=== PATIENT | female | born 1990 | race Two or more races ===

== ENCOUNTER → 2017-10-19 15:40 | Outpatient (CLI) | payer OTHER, SELFPAY | PROVIDERS: Family Provider Family Medicine; PCP Family Medicine; Visit Provider Otolaryngology Otolaryngology/Facial Plastic Surgery | DX: J02.9 Acute pharyngitis, unspecified (principal) | CPT/HCPCS: 87070 ==

== ENCOUNTER → 2018-06-18 16:05 | Outpatient (CLI) | payer OTHER, SELFPAY ==
[2018-06-18 18:36] LABS: Internal QC Validated? YES +Cl - CLEAR BKGD; Pregnancy, Urine Negative Negative
== END ==
PROVIDERS: Family Provider Family Medicine; PCP Family Medicine; Referring Provider Dermatology; Visit Provider Dermatology
DX: L70.0 Acne vulgaris (principal); L23.3 Allergic contact dermatitis due to drugs in contact with skin; Z79.899 Other long term (current) drug therapy
CPT/HCPCS: 81025

== ENCOUNTER → 2018-07-16 10:09 | Outpatient (CLI) | payer OTHER, SELFPAY ==
[2018-07-16 12:32] LABS: Internal QC Validated? YES +Cl - CLEAR BKGD; Pregnancy, Urine Negative Negative
--- OUTSIDE RECORDS SUMMARY | 2018-10-17 17:33 | XMS RPT_ITS ---
:1990 External Reference #:[id number] Author Organization [facility] Care Team Providers Name Role Phone DONNIE GOFF, DR. TERRY Steele Attending Unavailable PETRA GOFF, DR. WILLSON Primary Care Unavailable DONNIE GOFF, DR. TERRY Steele Attending Unavailable PETRA GOFF, DR. WILLSON Primary Care Unavailable Terry Hallman Attending Unavailable Erasmo Hallmane Referring Unavailable RickPaz coker Primary Care Unavailable Surya Arellano Attending Unavailable Petra Paz Primary Care Unavailable Surya Arellano Referring Unavailable Terry Hallman Attending Unavailable Terry Hallman Referring Unavailable PetraPaz Primary Care Unavailable PROBLEMS PROBLEMS DATE TYPE CONDITION / CODE ATTENDING STATUS SOURCE 07/16/2018 Unknown Z79.899 - Other Terry Hallman Active [facility] counterman Community (current[facility] drug Hospital therapy / Repository Z79.899(ICD-10) 07/16/2018 Unknown L70.0 - Acne Terry Hallman Active [facility] vulgaris / Community L70.0(ICD-10) Hospital Repository 07/16/2018 Unknown L23.3 - Allergic Terry Hallman Active [facility] contact Community dermatitis due to Hospital drugs in contact Repository with skin / L23.3(ICD-10) PROCEDURES PROCEDURES No Procedure Records FoundRESULTS RESULTS ,URINE Collected: 07/16/2018 Status: F Source: [facility] 10:15 AM [facility] REPOSITORY TYPE CODE TESTS RESULT OUT OF REFERENCE UNITS RANGE LAB L400.8000 Negative Normal HCGUQUAL Negative Result Comment: Very dilute urine specimens, as indicated by a low specific gravity, may not contain industrial relations representative levels of hCG. If is still suspected, a first morning urine specimen should be collected 48 hours later and tested. Performed By: #### L400.7600 #### [facility] [address] [place], [place], [id number] ,URINE Collected: 06/18/2018 Status: F Source: [place] 4:10 PM [facility] REPOSITORY TYPE CODE TESTS RESULT OUT OF REFERENCE UNITS RANGE LAB L400.8000 Negative Normal HCGUQUAL Negative Result Comment: Very dilute urine specimens, as indicated by a low specific gravity, may not contain industrial relations representative levels of hCG. If is still suspected, a first morning urine specimen should be collected 48 hours later and tested. Performed By: #### L400.7600 #### [facility] [address] [place], [place], [address] PREGU Collected: 05/20/2018 Status: F Source: [facility] 12:04 PM [facility] REPOSITORY TYPE CODE TESTS RESULT OUT OF RANGE REFERENCE UNITS LAB PREGU(LOIN C) Test Negative Urine LAB PRUG1(LOIN C) Unknown test HCG not (u) int detected. Performed By: #### PREGU #### [address] [address] AST Collected: 04/16/2018 Status: F Source: [facility] 12:[address] [place] [address] REPOSITORY TYPE CODE TESTS RESULT OUT OF RANGE REFERENCE UNITS LAB AST(LOINC) 10-40 U/L AST/SGOT 17 Performed By: #### AST, ALT, LIPID, HCGQ #### [place] [address] #### LDLDCT #### [address] [address] ALT/SGPT Collected: 04/16/2018 Status: F Source: [facility] [address] [place] [address] REPOSITORY TYPE CODE TESTS RESULT OUT OF RANGE REFERENCE UNITS LAB ALT(LOINC) 10-35 U/L ALT/SGPT 26 Performed By: #### AST, ALT, LIPID, HCGQ #### [place] [address] #### LDLDCT #### [address] [address] LIPID Collected: 04/16/2018 Status: F Source: [facility] 12: [facility] REPOSITORY TYPE CODE TESTS RESULT OUT OF REFERENCE UNITS RANGE LAB CHOL(LOINC 0-200 mg/dL ) Cholesterol 123 Result Comment: Cholesterol Reference Interval: Less than 200 Desirable 200-239 Borderline high risk 240 and above High risk LAB TRIG(LOINC) 0-150 mg/dL Triglycerides 101 Result Comment: Triglyceride Reference Interval: Less than 150 Normal 150-199 Borderline high risk 200-499 High risk 500 or higher Very high risk LAB HD(LOINC) 40-60 mg/dL HDL Cholesterol 45 LAB LDL(LOINC) 0-130 mg/dL LDL Cholesterol 58 Performed By: #### AST, ALT, LIPID, HCGQ #### [place] [address] #### LDLDCT #### [address] [address] HCGQ Collected: 04/16/2018 Status: F Source: [facility] 12:[address] [place] [address] REPOSITORY TYPE CODE TESTS RESULT OUT OF REFERENCE UNITS RANGE LAB HCGQ(LOINC mIU/mL ) hCG, quantitative <1.0 Result Comment: HCG Quantitative 3 Weeks Gestation mIU/mL 5.0 to 12.0 HCG Quantitative 4 Weeks Gestation mIU/mL 10.0 to 708.0 HCG Quantitative 5 Weeks Gestation mIU/mL 217.0 to 8245.0 HCG Quantitative 6 Weeks Gestation mIU/mL 152.0 to 32,177.0 HCG Quantitative 7 Weeks Gestation mIU/mL 4059.0 to 153,767.0 HCG Quantitative 8 Weeks Gestation mIU/mL 31,366.0 to 149,094.0 HCG Quantitative 9 Weeks Gestation mIU/mL 59,109.0 to 135,901.0 HCG Quantitative 10 Weeks Gestation mIU/mL 44,186.0 to 170,409.0 HCG Quantitative 12 Weeks Gestation mIU/mL 27,107.0 to 201,615.0 HCG Quantitative 14 Weeks Gestation mIU/mL 24,302.0 to 93,646.0 Performed By: #### AST, ALT, LIPID, HCGQ #### [address] [address] #### LDLDCT #### [address] [address] DIRECT LDL Collected: 04/16/2018 Status: F Source: [facility] 12:01 [facility] REPOSITORY TYPE CODE TESTS RESULT OUT OF REFERENCE UNITS RANGE LAB LDLDIR(BRODY <100 mg/dL NC) LDL Cholesterol 67 Direct Result Comment: <100 mg/dL, Optimal 100-129 mg/dL, Near optimal/above optimal 130-159 mg/dL, Borderline high 160-189 mg/dL, High >189 mg/dL, Very high Secondary prevention optimal LDL Cholesterol levels are recommended to be < 70 mg/dL Performed By: [place] [address] [employer]: Peña Calderón#: [id number] Phone#: LAB VLDL(LOINC) VLDL Test Not Cholesterol Indicated Result Comment: Performed By: [place] [address] [employer]: Ruthann Montelongo M.D. CLIA#: [id number] Phone#: Performed By: #### AST, ALT, LIPID, HCGQ #### [address] [address] #### LDLDCT #### [place] [address] [place], [place] [address] Observed: 10/19/2017 Status: F Source: [facility] CULTURE, THROAT 2:00 PM [facility] REPOSITORY Culture, Throat Mixed normal throat lyndsey. No Haemophilus, Streptococcus pneumoniae, beta-hemolytic Streptococcus or Staphylococcus aureus isolated. Performed By: #### M100.1000 #### [facility] [address] [place], [address] VIDH Collected: 10/09/2017 Status: F Source: [facility] 11:53 AM [facility] REPOSITORY TYPE CODE TESTS RESULT OUT OF RANGE REFERENCE UNITS LAB VIDH(LOINC) ng/mL Vit. D 41 25-Hydroxy Result Comment: Interpretive Values Based on Total 25(OH)D: Severe Deficiency <20 ng/mL Mild to Moderate Deficiency 20-30 ng/mL Optimum Levels 30-100 ng/mL Toxicity Possible >100 ng/mL Performed By: #### VIDH #### [address] [address] ALLERGIES ALLERGIES No Allergies Records FoundENCOUNTERS ENCOUNTERS ADMIT/DISCHARGE ACCOUNT NUMBER ADMITTING ENCOUNTER LOCATION SOURCE CLASS 07/16/2018 [id number] [facility] ding:[facility] Repository 06/18/2018 [id number] [facility] 05/20/2018/05/20/[id number] ding:[facility] Repository 04/16/2018/04/16/[id number] ding:[facility] Repository 10/19/2017 [id number] [facility] ding:[facility] Repository PAYERS PAYERS ENCOUNTER GUARANTOR PAYER SUBSCRIBER SOURCE 07/16/2018 KRISTEN G Primary CASS E Catherine [id number] Insurance:MEDICAL [facility]ABERDOB[id number] [address]Qce: Number: Repository [id number] (HP) Date:[id number] [address] [place] [phone]: 07/16/2018 Secondary NOT GIVENUNK Catherine Insurance:SELF PAY [facility] Number: Effective Repository Date:2018-07-16 06/18/2018 KRISTEN G Primary CASS E Catherine [id number] Insurance:MEDICAL RABERDOB: [facility] Darryl Martinez[address] [address]Oim: Number: Repository [id number] (HP) Date:[id number] [address] [place], [place] [address]WP: 06/18/2018 Secondary NOT GIVENUNK Catherine Insurance:SELF PAY [facility] Number: Effective Repository Date:2018-06-18 05/20/2018 KRISTEN G Primary CASS [facility] RAB[facility]: Insurance:MEDICAL RABERDOB: [facility] [id number] Repository DARRYL MARTINEZ, Number: [address] [facility] [id number] [address]~CHERIE Date:2018-05-20Tel: [email or web address]: [phone] Name:[address]PO BOX (HP)Tel: [phone]) (HP)Tel: [phone] [address], [place] [phone] (WP) [phone] (WP) [address]ZG: 04/16/2018 KRISTEN G Primary CASS Kaushik Delacruz [facility] RABERDOB: Insurance:MEDICAL RABERDOB: [facility] [place] [id number] [facility] [id number] Repository DARRYL MARTINEZ, Number: [address] [place] [id number] [place] [address]~KRISTEN.CHERIE Date:2018-04-16 [address]Rvo: ([email or web address]) [email or web address]: [phone] Name:[address]OX (HP)Tel: (090) (HP)Tel: [phone], [place] [phone] (WP) [phone] (YL) [address]EN: 10/19/2017 Kristen [id number] Primary Cass RaberDOB: Catherine Darryl Martinez, Insurance:MEDICAL [id number] [facility] [address]Dba: [facility] Number: Repository () [id number] Date:[id number] [address] [place] [phone]: 10/19/2017 Secondary NOT GIVENUNK Catherine Insurance:SELF PAY [facility] Number: Effective Repository Date:2017-10-19
== END ==
PROVIDERS: Family Provider Family Medicine; PCP Family Medicine; Referring Provider Dermatology; Visit Provider Dermatology
DX: L70.0 Acne vulgaris (principal); L23.3 Allergic contact dermatitis due to drugs in contact with skin; Z79.899 Other long term (current) drug therapy
CPT/HCPCS: 81025

== ENCOUNTER → 2018-09-24 09:33 | Outpatient (CLI) | payer OTHER, SELFPAY ==
[2018-09-24 12:57] LABS: Internal QC Validated? YES +Cl - CLEAR BKGD; Pregnancy, Urine Negative Negative
== END ==
PROVIDERS: Family Provider Family Medicine; PCP Family Medicine; Referring Provider Dermatology; Visit Provider Dermatology
DX: L70.0 Acne vulgaris (principal); L23.3 Allergic contact dermatitis due to drugs in contact with skin; Z79.899 Other long term (current) drug therapy
CPT/HCPCS: 81025

== ENCOUNTER → 2018-10-22 09:48 | Outpatient (CLI) | payer OTHER, SELFPAY ==
[2018-10-22 12:37] LABS: Internal QC Validated? YES +Cl - CLEAR BKGD; Pregnancy, Urine Negative Negative
== END ==
PROVIDERS: Family Provider Family Medicine; PCP Family Medicine; Referring Provider Dermatology; Visit Provider Dermatology
DX: L70.0 Acne vulgaris (principal); L23.3 Allergic contact dermatitis due to drugs in contact with skin; Z79.899 Other long term (current) drug therapy
CPT/HCPCS: 81025

== ENCOUNTER → 2018-11-07 13:47 | Outpatient (CLI) | payer OTHER, SELFPAY ==
[2018-11-07 09:16] VITALS: BMI 19.2
[2018-11-11 10:11] LABS: HPV Reflexed? NOT INDICATED
== END ==
PROVIDERS: Family Provider Family Medicine; PCP Family Medicine; Referring Provider Nurse Practitioner Women's Health; Visit Provider Nurse Practitioner Women's Health
DX: Z12.4 Encounter for screening for malignant neoplasm of cervix (principal)
CPT/HCPCS: 87624; 88175; G0145

== ENCOUNTER → 2018-11-19 09:25 | Outpatient (CLI) | payer OTHER, SELFPAY ==
[2018-11-07 09:16] VITALS: BMI 19.2
[2018-11-19 12:35] LABS: Internal QC Validated? YES +Cl - CLEAR BKGD; Pregnancy, Urine Negative Negative
== END ==
PROVIDERS: Family Provider Family Medicine; PCP Family Medicine; Referring Provider Dermatology; Visit Provider Dermatology
DX: L70.0 Acne vulgaris (principal); L23.3 Allergic contact dermatitis due to drugs in contact with skin; Z79.899 Other long term (current) drug therapy
CPT/HCPCS: 81025

== ENCOUNTER → 2018-12-31 10:29 | Outpatient (CLI) | payer OTHER, SELFPAY ==
[2018-11-07 09:16] VITALS: BMI 19.2
[2018-12-31 11:20] LABS: Internal QC Validated? YES +Cl - CLEAR BKGD; Pregnancy, Urine Negative Negative
== END ==
PROVIDERS: Family Provider Family Medicine; PCP Family Medicine; Referring Provider Dermatology; Visit Provider Dermatology
DX: L70.0 Acne vulgaris (principal); L23.3 Allergic contact dermatitis due to drugs in contact with skin; Z79.899 Other long term (current) drug therapy
CPT/HCPCS: 81025

== ENCOUNTER → 2021-12-20 | Outpatient (CLI) | payer OTHER, SELFPAY ==
[2021-12-27 11:07] LABS: Almond <0.10 kU/L (Class 0); Apple <0.10 kU/L (Class 0); Banana <0.10 kU/L (Class 0); Barley, Whole Grain <0.10 kU/L (Class 0); Beef <0.10 kU/L (Class 0); Brazil Nut <0.10 kU/L (Class 0); Carrot <0.10 kU/L (Class 0); Cashew <0.10 kU/L (Class 0); Chicken <0.10 kU/L (Class 0); Clam <0.10 kU/L (Class 0); Codfish <0.10 kU/L (Class 0); Corn <0.10 kU/L (Class 0); Egg, White <0.10 kU/L (Class 0); Egg, Whole <0.10 kU/L (Class 0); Garlic <0.10 kU/L (Class 0); Gluten <0.10 kU/L (Class 0); Hazelnut/Filbert <0.10 kU/L (Class 0); Milk (Cow) <0.10 kU/L (Class 0); Oat <0.10 kU/L (Class 0); Onion <0.10 kU/L (Class 0); Orange <0.10 kU/L (Class 0); Pea <0.10 kU/L (Class 0); Peach <0.10 kU/L (Class 0); Peanut <0.10 kU/L (Class 0); Pecan <0.10 kU/L (Class 0); Pork <0.10 kU/L (Class 0); Potato, White <0.10 kU/L (Class 0); Rice <0.10 kU/L (Class 0); SCALLOP <0.10 kU/L (Class 0); SESAME SEED <0.10 kU/L (Class 0); Shrimp <0.10 kU/L (Class 0); Soybean <0.10 kU/L (Class 0); Strawberry <0.10 kU/L (Class 0); Tomato <0.10 kU/L (Class 0); Walnut, (Food) <0.10 kU/L (Class 0); Wheat <0.10 kU/L (Class 0); Yeast <0.10 kU/L (Class 0)
[2021-12-28 11:39] LABS: Turkey <0.10 kU/L (Class 0)
== END | disposition home or self-care (01) ==
PROVIDERS: PCP Student in an Organized Health Care Education/Training Program; Referring Provider Otolaryngology Otolaryngology/Facial Plastic Surgery; Visit Provider Otolaryngology Otolaryngology/Facial Plastic Surgery
DX: T78.40XA Allergy, unspecified, initial encounter (principal)
CPT/HCPCS: 36415; 86003

== ENCOUNTER → 2023-03-19 | Outpatient (CLI) | payer OTHER, SELFPAY ==
[2023-03-23 14:10] LABS: HPV APTIMA, High Risk Negative (Negative)
== END | disposition home or self-care (01) ==
LOC: LABSPEC 13:41
PROVIDERS: Referring Provider Nurse Practitioner Women's Health; Visit Provider Nurse Practitioner Women's Health
DX: Z12.4 Encounter for screening for malignant neoplasm of cervix (principal)
CPT/HCPCS: 87624; 88175; G0145

== ENCOUNTER → 2024-08-25 | Outpatient (CLI) | payer OTHER, SELFPAY ==
--- NOTE | 2024-08-25 13:18 | US_ITS ---
INDICATION: AUB -- NO TV PROBE EXAMINATION: Ultrasound US Pelvis Non-OB Complete TECHNIQUE: Transabdominal and transvaginal pelvic ultrasound was performed. Grayscale, spectral waveform, and color flow Doppler evaluation of the adnexa. 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 The uterus measures 8.3 x 7.2 x 3.0 cm. There is no uterine mass. The endometrial stripe measures 6 mm in AP diameter which is within normal limits. RIGHT OVARY: 3.1 x 1.9 x 1.8 cm. Follicles are noted. There is normal arterial inflow and venous outflow present in the right ovary. LEFT OVARY: 3.6 x 2.9 x 2.3 cm. Follicles are noted. There is normal arterial inflow and venous outflow present in the left ovary. FREE FLUID: None. 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 Electronically Signed: Mathew Disal DO at 16:17 EST Reading Location ID and State: [facility] / [place] Tel [phone], Service support ,
== END | disposition home or self-care (01) ==
PROVIDERS: Referring Provider Nurse Practitioner Women's Health; Visit Provider Nurse Practitioner Women's Health
DX: N93.9 Abnormal uterine and vaginal bleeding, unspecified (principal)
CPT/HCPCS: 76856